=== PATIENT | female | born 1990 | race Caucasian/White ===

== ENCOUNTER 2018-10-21 12:21 | Emergency (ER) | payer MEDICARE, MEDICAID ==
[~2018-10-21] VITALS: Ht 160 cm; Wt 72.7 kg
[~2018-10-21 12:21] MED LIST: DIPH25CA83 PO; MECL12.584 PO; NO HOME MEDS
[2018-10-21] MEDS ORDERED: TETanus/Pertussis (Acell)/Diphther VAC/PF (Tdap-Adult) 0.5ml syringe IM ONE (12:35)
[2018-10-21 13:56] VITALS: BP 102/63
== END 2018-10-21 13:58 | disposition home or self-care (01) ==
LOC: ER 12:22
DX: S61.001A Unspecified open wound of right thumb without damage to nail, initial encounter (principal); S60.011A Contusion of right thumb without damage to nail, initial encounter; J45.909 Unspecified asthma, uncomplicated; W22.8XXA Striking against or struck by other objects, initial encounter; Y93.89 Activity, other specified; Y92.89 Other specified places as the place of occurrence of the external cause; Y99.8 Other external cause status
CPT/HCPCS: 90471; 90715; 99283

== ENCOUNTER 2019-05-30 14:48 | Emergency (ER) | payer MEDICARE, MEDICAID ==
[~2019-05-30] VITALS: Ht 160 cm; Wt 74.7 kg
[2019-05-30 15:36] VITALS: BP 126/84
== END 2019-05-30 15:44 | disposition home or self-care (01) ==
LOC: ER 14:49
DX: R07.89 Other chest pain (principal); J45.909 Unspecified asthma, uncomplicated; F41.9 Anxiety disorder, unspecified; Z79.899 Other long term (current) drug therapy
CPT/HCPCS: 71046; 93005; 99283

== ENCOUNTER 2024-12-30 17:56 | Emergency (ER) | payer MEDICARE, MEDICAID ==
[~2024-12-30] VITALS: Ht 160 cm; Wt 67.2 kg
[~2024-12-30 17:56] MED LIST changes: +MECL-231 PO; -MECL12.584 PO
[2024-12-30 17:59] VITALS: BP 103/37; PULSE 91; O2SAT 97
[2024-12-30] MEDS ORDERED: HYDR-3972 PO (19:35)
[2024-12-30] MEDS ORDERED: NAPR-56 PO (19:35)
--- NOTE | 2024-12-30 19:35 | Physician Documentation ---
History of Present Illness ~ Chief Complaint: Leg Pain Stated Complaint: LT FOOT AND LEG PAIN Time Seen by MD: 18:52 OK to notify your PCP?: Yes Primary Medical Doctor: QING MARIN Source: patient Mode of Arrival: POV Exam Limitations: no limitations HPI Ginger is a 34-year-old female who 3 weeks ago sustained a injury to her left knee in martial arts class when she jumped on her left leg and heard multiple po pping sounds which then she was unable to stand. She had imaging done at [facility] with negative x-rays. She was given crutches and told to follow up with her primary care. She has an upcoming MRI of her left knee on 01/14/2025. She has been taking ibuprofen and CBD for the pain. She reports that when she is bearing weight it is painful and feels very unstable. Good CSM and pulses in left foot. she has been using crutches. Tetanus witin 5 years: Yes Medication Reconciliation Allergies: Coded Allergies: No Known Allergies (Unverified , 04/12/14) Scheduled Diphenhydramine Hcl (Benadryl), 25 MG PO BIDBD Naproxen (Naproxen), 1 TAB PO Q12H Scheduled PRN Hydrocodone Bit/Acetaminophen (Hydrocodon-Acetaminophn 10-325 tablet), 1 TAB PO TID PRN PRN for pain Meclizine Hcl (Meclizine Hcl), 1 TABLET PO TID PRN for VERTIGO Miscellaneous Medications Home Med List (No Home Medications), (Reported) Past Medical History Past Medical History: Seizures, Asthma, Hernia, *PSYCH*, Anxiety Past Surgical History: other Other Past Surgical History: hernia repair Alcohol Use: Rarely Drug Use: none Lives In: Home Review of Systems All Other Systems at this time: Reviewed and Negative Physical Exam Vital Signs: RN Vital Signs have been reviewed: Yes, Temperature: 98.0, Source: Temporal, Heart Rate: 91, Respiratory Rate: 16, BP: 103/37, Pulse Oximetry: 97, Weight: 67.200 Oxygen Flow Rate: 0 Pulse Oximetry Reflects: adequate oxygenation Physical Exam General: Alert, no apparent distress. HEENT: PERRL, EOMI, no injection, moist mucous membranes. Neck: Full range of motion. Respiratory: Lungs clear, no respiratory distress. Chest: No accessory muscle use. Cardiovascular: Regular rate and rhythm, no murmurs. Gastrointestinal: Soft, nontender, nondistended. Bowels sounds present. Extremities: Normal range of motion, no deformity. Limited range of motion of left knee due to pain. Neurologic: Oriented x4. Psychiatric: Normal mood and affect. Skin: Normal color, warm and dry. No edema, no ecchymosis. Pulses 2+ and left foot and CSM good. Progress Results/Orders Reviewed/noted all lab results: Yes Results/Orders Orders - GIOVANA DUMONT Ortho Orders (12/30/24 ) Completed Orders - GIOVANA DUMONT Naproxen Tablet (Naprosyn Tablet) (12/30/24 19:30) Hydrocodone/Apap 10/325 (Tacoma 10/325mg (12/30/24 19:30) Vital Signs 12/30/24 17:59 Temp 98.0 Pulse 91 Resp 16 B/P (MAP) 103/37 Pulse Ox 97 O2 Flow Rate 0 Medical Decision Making Findings Ginger is a 34-year-old female with left knee pain for the past 3 weeks after an injury. She has an upcoming MRI in 2 weeks. She does not have any knee immobil izer so we have provided her with an Juan bandage. Using shared decision-making the patient made it known that she does have to go up and down stairs and using a full knee immobilizer would be very difficult to maneuver and she would opt to have an Juan bandage instead. I have given her naproxen and [place] in the department for pain relief and sent in prescriptions for her. At home she has been advised to elevate the leg, rest and ice/use heat or tens unit pain relief. She should follow up with the primary care provider in the next 3 days and return back here for any new or worsening symptoms. General Diff Dx:Considerations: Include: Fracture, Hematoma, Malunion, Neurovascular injury, Open fracture, Sprain Departure Disposition: 01 HOME / SELF CARE / HOMELESS Impression: Primary Impression: Knee pain, left Condition: Stable Discharge Instructions: Acute Knee Pain, Adult, [id number], RICE Therapy for Routine Care of Injuries, [id number] Additional Instructions: Please use the naproxen for pain relief and if that is not working then please use the [place]oma. We discussed trying a half tablet of the [place] but if needed you can take a full tablet. Please continue with your MRI appointment and follow up with her primary care provider as scheduled. You can elevate, rest, ice/heat the site. An Juan wrap has been provided for extra support and please use your crutches. Referrals: NO PRIMARY CARE PROVIDER (PCP) Prescriptions Hydrocodone Bit/Acetaminophen (Hydrocodon-Acetaminophn 10-325 tablet) 10mg- 325mg Tablet 1 TAB PO TID PRN PRN for pain for 5 Days, #15 TAB Prov: GIOVANA DUMONT [employer] 12/30/24 Naproxen (Naproxen) 500 Mg Tablet 1 TAB PO Q12H for 10 Days, #20 TAB Prov: GIOVANA DUMONT [employer] 12/30/24 Education Educated: Patient, Family Educated regarding: diagnosis, treatment, prognosis, need for follow up Signature Scribe Signature: . Attestation: Scribed for Giovana Dumontp by Giovana Dumont - MARGO . 12/30/24 19:51 GIOVANA DUMONTP December 30, 2024 19:35
[2024-12-30 19:48] VITALS: TEMP 98
[2024-12-30 19:57] VITALS: RESP 16
[2024-12-30] MEDS: HYDROcodone/acetaminophen 10/325mg tab PO ONE (19:57)
[2024-12-30] MEDS: naproxen 500mg tablet PO ONE (19:58)
== END 2024-12-30 20:06 | disposition home or self-care (01) ==
LOC: ER 17:57
DX: M25.562 Pain in left knee (principal); J45.909 Unspecified asthma, uncomplicated; Z98.890 Other specified postprocedural states
CPT/HCPCS: 99283; A6449